=== PATIENT | male | born 1945 ===

== ENCOUNTER 2022-03-12 07:06 | Inpatient (IN) ==
--- NOTE | 2022-02-24 09:15 | PAT Medication Instructions ---
Medication Instructions Date of Service February 24, 2022 Home Medications Medication Instructions Recorded sildenafil (pulm.hypertension) 20 See Rx Instructions PO ONCE PRN 04/01/ mg tablet sexual activity #60 tabs lisinopril 2.5 mg tablet 2.5 mg PO HS metronidazole 0.75 % topical cream 1 appln topical DAILY PRN skin irritation cholecalciferol (vitamin D3) 125 mcg (5,000 unit) capsule 125 mcg PO QAM multivitamin 1 tab PO QAM sildenafil 20 mg tablet See Rx Instructions PO ONCE PRN acetaminophen 500 mg capsule 1,000 mg PO Q4H PRN Pain STOP taking 24 hours before surgery metronidazole 0.75 % topical cream 1 appln topical DAILY PRN skin irritation sildenafil 20 mg tablet See Rx Instructions PO ONCE PRN sexual activity DO NOT take the morning of surgery cholecalciferol (vitamin D3) 125 mcg (5,000 unit) capsule 125 mcg PO QAM multivitamin 1 tab PO QAM Take morning of surgery With a small sip of water, OTHERWISE NOTHING TO EAT OR DRINK AFTER MIDNIGHT: acetaminophen 500 mg capsule 1,000 mg PO Q4H PRN Pain (if needed) Take evening before surgery lisinopril 2.5 mg tablet 2.5 mg PO HS acetaminophen 500 mg capsule 1,000 mg PO Q4H PRN Pain (if needed) Other Notes If you have any questions please call us at [phone] or [phone] or [phone] or [phone]
--- NOTE | 2022-02-25 15:18 | Anesthesiology Consultation ---
Date of Service February 25, 2022 Assessment & Plan (1) Encounter for pre-operative examination: - Patient acceptable risk for surgery pending surgeon-ordered PCP clearance (scheduled 03/05; Dr. Jenkins). - COVID screening: Per assessment on 02/25: No known COVID-19 positive contacts or current COVID-19 related symptoms. Travel screen negative. Patient vaccinated. Surgeon arranging preop COVID testing. Awaiting results. Chart Review Chart Review: Patient seen in Pre Admission Testing Teaching & Discussion Pre-Anesthesia Teaching/Discussion Notes: Instructed NPO after midnight before surgery,except medications with 15 cc of water. Medication instructions provided according to the PAT guidelines. History Surgery Operation Date: 03/12/22 09:05 Proposed Procedures p L3-L4 Decompression and Fusion, Possible L4-L5, Spinal Cord Monitoring - Albin Turpin DO Height/Weight Height: 6 ft 3 in Weight: 96.615 kg Allergies Allergy/AdvReac Type Severity Reaction Status Date / Time No Known Allergies Allergy Verified 02/23/22 13:23 Medications Home Medications Medication Instructions Recorded Confirmed Last Taken lisinopril 2.5 mg tablet 2.5 mg PO HS 02/18/20 02/23/22 Unknown metronidazole 0.75 % topical cream 1 appln topical DAILY PRN skin 02/18/20 02/23/22 Unknown irritation cholecalciferol (vitamin D3) 125 125 mcg PO QAM 09/26/20 02/23/22 Unknown mcg (5,000 unit) capsule multivitamin 1 tab PO QAM 09/26/20 02/23/22 Unknown sildenafil (pulm.hypertension) 20 See Rx Instructions PO ONCE PRN 04/01/21 02/23/22 Unknown mg tablet sexual activity #60 tabs acetaminophen 500 mg capsule 1,000 mg PO Q4H PRN Pain 02/23/22 02/23/22 Unknown Past Medical History Medical History Blepharoptosis Chronic anemia Hgbs 10s Chronic back pain Since 09/2021 Chronic kidney disease Stage 3, creatinine 1.9-2s Follows with [facility] Hypertension Exercise / Class Metabolic Activity II 4-5 Yardwork/Stairs/Walk up hill (one FS (no CP, no SOB)) Past Family History Family History Mother Hypertension Other No family history of adverse response to anesthesia Past Surgical History Surgical History History of cataract surgery History of colonoscopy S/P epidural steroid injection Set of 3 (Dr. Holm) Past Anesthesia History No Hx of Anesthesia Complications (except post-op nausea) and No Family Hx of Anesthesia Complications History of PONV History of PONV (post-op nausea) and Hx of Motion Sickness (+ vertigo) Social History Smoking Status: Never smoker Do You Dip or Chew Tobacco: No Hx Alcohol Use: Yes alcohol intake frequency: a few times a month Hx Substance Use: No substance use type: does not use Review of Systems Patient denies chest pain, shortness of breath, dyspnea on exertion, fever, c hills, cough, wheezing, palpitations. Physical Exam Vital Signs VITALS BP 164/79 (BP typically 110s/70s) P 69 TEMP 98.5 SP02 100%RA RESP 16 PHYSICAL Full cervical extension range of motion. Full TMJ range of motion. TMD 4 finger breaths Mallampati Score 1 Dentition: upper partial Lungs: clear throughout to auscultation Cardiac: regular rate and rhythm, no murmurs noted Spine: normal Carotid arteries: negative bruit Extremities: no edema Lab Results Anesthesia Preop Results Results Anesthesia Widget: WBC 8.26 K/ul (4.8-10.8) 02/25/22 Hgb 11.2 g/dl (14.0-18.0) L 02/25/22 Hct 33.2 % (40.1-51.0) L 02/25/22 Plt 289 K/uL (130-400) 02/25/22 Na 136 mmol/L (136-145) 02/25/22 K 4.6 mmol/L (3.5-5.1) 02/25/22 Cl 101 mmol/L (98-107) 02/25/22 CO2 29 mmol/L (21-32) 02/25/22 BUN 26 mg/dl (6-23) H 02/25/22 Creat 1.93 mg/dl (0.6-1.4) H 02/25/22 Glucose Level 96 mg/dl (70-99(Fasting)) 02/25/22 PT 10.7 Seconds (9.0-12.0) 02/25/22 PTT 26.1 Seconds (21.0-31.0) 02/25/22 INR 1.0 (0.9-1.1) 02/25/22 Urine Color Yellow 02/25/22 Urine Appearance Clear (Clear) 02/25/22 Urine pH 5.5 (4.5-7.5) 02/25/22 Urine Specific [place] 1.011 (1.000-1.030) 02/25/22 Urine Protein Negative (Negative) 02/25/22 Urine Glucose (UA) Negative (Negative) 02/25/22 Urine Ketones Negative (Negative) 02/25/22 Urine Blood Negative (Negative) 02/25/22 Urine Nitrite Negative (Negative) 02/25/22 Urine Bilirubin Negative (Negative) 02/25/22 Urine Urobilinogen Negative (Negative) 02/25/22 Urine Leukocyte Esterase Negative (Negative) 02/25/22 Blood Type A Positive 02/25/22 Antibody Screen NEGATIVE 02/25/22 Testing Laboratory Results Per [facility] nephrology, pt has chronic anemia with hgb in the 10s and creatinine in the 1.9-2s per chart review. Electrocardiogram Date: 09/22/21 Sinus rhythm at 79 bpm. RBBB. Chest X-Ray Date: 02/25/22 Findings: + NAD Echocardiogram Date: 10/27/21 EF 60-65%. No regional motion abnormality. Grade 1 diastolic dysfunction. Mildly dilated ascending aorta. Aortic root is not dilated.
[~2022-03-12 07:06] MED LIST: ACETAMINOPHEN 500 MG TAB PO SCH; CeleBREX 200 MG CAP PO SCH; GABAPENTIN 300 MG CAP PO SCH; LR 15ML/HR IV SCH; ceFAZolin 2000MG 2,000 MG/15 ML SYR IV SCH
[2022-03-12] MEDS ORDERED: ONDANSETRON INJ 2 MG/ML 2 ML VIAL IV PRN ×2 (08:33→13:46)
[2022-03-12] MEDS ORDERED: LABETALOL HCL IV 5 MG/ML 20ML IV PRN (08:33)
[2022-03-12] MEDS ORDERED: ATROPINE SULFATE 0.1 MG/ML 10ML SYR IV PRN (08:33)
[2022-03-12] MEDS ORDERED: HYDROmorphone INJ 1 MG/ML SYRINGE IV PRN ×2 (08:33→13:46)
[2022-03-12] MEDS ORDERED: ePHEDrine sulfate 50 MG/ML AMP IV PRN (08:33)
--- NOTE | 2022-03-12 08:35 | History & Physical Bridge Note ---
Date of Service March 12, 2022 History & Physical Bridge Note I have examined the patient, reviewed the History & Physical and in the interval since the performance of the History & Physical I have noted the following changes of clinical significance: no changes noted
--- NOTE | 2022-03-12 08:36 | History & Physical Report ---
Date of Service March 12, 2022 Assessment & Plan (1) Neurogenic claudication due to lumbar spinal stenosis: Plan: L3-L4 decompression and fusion, possible L4-L5 History of Present Illness Chief Complaint: Back and leg pain Primary Care Provider: Arvin Lanier This is a 76-year-old male who presents with chronic persistent back and leg pain. Failing course of nonoperative care is here for surgical intervention. Allergies Allergy/AdvReac Type Severity Reaction Status Date / Time No Known Allergies Allergy Verified 03/12/22 07:22 Home Medications Medication Instructions Recorded Confirmed Type lisinopril 2.5 mg tablet 2.5 mg PO HS PRN Other 02/18/20 03/12/22 History metronidazole 0.75 % topical cream 1 appln topical DAILY PRN skin 02/18/20 03/12/22 History irritation cholecalciferol (vitamin D3) 125 125 mcg PO QAM 09/26/20 03/12/22 History mcg (5,000 unit) capsule multivitamin 1 tab PO QAM 09/26/20 03/12/22 History sildenafil (pulm.hypertension) 20 See Rx Instructions PO ONCE PRN 04/01/21 03/12/22 Rx mg tablet sexual activity #60 tabs acetaminophen 500 mg capsule 1,000 mg PO Q4H PRN Pain 02/23/22 03/12/22 History Past Med/Surg History Medical History Blepharoptosis Chronic anemia Hgbs 10s Chronic back pain Since 09/2021 Chronic kidney disease Stage 3, creatinine 1.9-2s Follows with [facility] Hypertension Surgical History History of cataract surgery History of colonoscopy S/P epidural steroid injection Set of 3 (Dr. Holm) Family History Mother Hypertension Other No family history of adverse response to anesthesia Social History Smoking Status: Never smoker Second Hand Exposure: No; Do You Dip or Chew Tobacco: No; Tobacco Cessation Education Requested by Patient: No Hx Alcohol Use: Yes Hx Substance Use: No Preferred Language: Maltese Communication Ability: Effective Insurance Underwriting Assistant Required: No Beliefs That Will Affect Care: None marital status: Current Living Situation: Spouse Other Information That Helps Us Care for You: No Feels Safe at Home: Yes Safety Concerns: Feels Safe At This Time Assistive Devices Comment: upper partial Physical Exam Physical Exam: Patient is alert and oriented Heart regular rhythm Lungs clear Results & Data Results & Data ([facility]) Vital Signs (Past 12 Hours) Vital Signs Temp Pulse Resp BP Pulse Ox O2 Del Method 03/12/22 07:49 Room Air 03/12/22 07:43 36.8 C 80 18 164/81 H 98 Room Air
[2022-03-12] MEDS ORDERED: BUPIVACAINE/EPINEPHRINE 0.25% 1:200,000 30 ML VIAL ONE (08:59)
[2022-03-12] MEDS ORDERED: ceFAZolin 330 MG/ML 1 GM VIAL ONE (08:59)
[2022-03-12] MEDS ORDERED: fentaNYL citrate 100 MCG/2 ML VIAL ONE (09:05)
[2022-03-12] MEDS ORDERED: HYDROmorphone INJ 2 MG/ML SYR/VIAL ONE (09:50)
[2022-03-12] MEDS ORDERED: DEXAMETHASONE SOD INJ 4 MG/ML VIAL ONE ×3 (10:10)
[2022-03-12] MEDS ORDERED: ONDANSETRON INJ 2 MG/ML 2 ML VIAL ONE (10:11)
[2022-03-12] MEDS ORDERED: ROCURONIUM BROMIDE 10 MG/ML 5 ML VIAL IV ONE (10:21)
[2022-03-12] MEDS ORDERED: FLOSEAL HEMOSTATIC MATRIX 10ML TOP ONE (11:40)
--- NOTE | 2022-03-12 11:48 | Operative Report ---
Post Operative Report Pre & Post Diagnosis Operation Date: 03/12/22 09:05 Pre-Op Diagnosis: Spinal Stenosis Lumbar Region with Radiculopathy Post-Op Diagnosis: Spinal Stenosis Lumbar Region with Radiculopathy I identified the patient and participated in the time-out.: Yes Procedure Operation Date: 03/12/22 09:05 Actual Procedures #1 lumbar decompression bilateral medial facetectomies and foraminotomies L2-L3, L3-L4 and L4-5. #2 posterior spinal fusion L3-L4 L4-L5. #3 placement of posterior instrumentation L3-L4 L4-L5. #4 interbody fusion L3-L4 L4-L5. #5 placement of Spira 14 x 26 mm cage at L3-L4 and 12 x 26 mm at L4-L5. #6 placement locally harvested morselized autograft in the posterior gutters. #7 placement of I factor model V toss in interbody space and posterior lateral gutters. Surgeon Albin Turpin, DO Credit Adjuster Larry Mckeon Estimated Blood Loss 200 Findings Consistent with Post-Op Diagnosis Specimens None Indications This is a 76-year-old male who presents with above-mentioned diagnosis of failed course of nonoperative care is here for surgical invention. Description of Procedure Patient was met with identified informed consent obtained. Patient was then taken to the operative suite underwent a patient placed in a prone position the [place] table top Luis frame. All bony prominences well-padded eyes inspected to ensure no external pressure placed upon them. This point lumbar spine was prepped and draped in normal sterile fashion. Sharp dissection with the assistance of Bovie cautery from down to and exposing the lamina and transverse processes of L3-L4-L5 bilaterally. From caudal to cephalad fashion complete laminectomy of L4 L3 and partial laminectomy of L2 was performed including bilateral medial facetectomies and foraminotomies addressing severe spinal stenosis. Pedicle screws were then placed in all 3 L4-L5 bilaterally with assistance of fluoroscopy and appropriately sized marie placed. By way of a transforaminal approach and right complete discectomy of L4-5 was performed endplates curetted to subcortical bleeding bone and a 12 x 26 mm spiral cage with I factor tapped in position. Then proceeded to L3-L4 and again by way of a transforaminal approach on the right complete discectomy performed endplates curetted to subcortically bone and a 14 x 26 mm spiral cage with I factor tapped in position. The rods were then compressed locked into final position bilaterally. The transverse processes of L3-L4-L5 burred to subcortically bone. I factor combined with V toss and locally harvested morselized autograft was placed in the posterior gutters. 15 round CASSIE drain inserted. The incision was then closed with 1 Vicryl the fascia 2-0 Vicryl subcutaneously and 4 Monocryl for final skin closure. Steri-Strip sterile dressings placed. Patient waken taken PACU stable condition. Please note spinal cord monitoring was utilized at the procedure no changes noted. Lastly Larry Mckeon was present at the entire surgeon while the patient positioning complex portions of the surgery and fascial closure. I attest to the content of the Intraoperative Record and any orders documented therein. Any exceptions are noted below.
[2022-03-12] MEDS: fentaNYL citrate 100 MCG/2 ML VIAL IV PRN ×4 (12:36→12:51)
--- NOTE | 2022-03-12 12:42 | Fluoroscopy Report ---
FL lumbar spine 2-3V CLINICAL HISTORY: L3-L4 DECOMPRESSION AND FUSION POSSIBLE L4-L5 COMPARISON STUDY: None. FLUOROSCOPY TIME: 29 seconds. FINDINGS: 2 fluoroscopic spot images of the lumbar spine demonstrate posterior decompression and fusi on at L3 L5 with pedicle screws and rods. The hardware appears intact. Disc spacers are placed. IMPRESSION: Fluoroscopic assistance provided for L3-L5 posterior decompression and fusion. ACT 112: Negative or not required by law. Electronically signed by: Keanu Garcia M.D. 03/12/2022 12:41 PM
[2022-03-12] MEDS ORDERED: HYDROmorphone INJ 0.5 MG/0.5 ML SYR ONE (13:25)
[2022-03-12] MEDS ORDERED: ALUMINUM/MAGNESIUM SUSP 30 ML UDC PO PRN (13:46)
[2022-03-12] MEDS ORDERED: SOD PHOSPHATE/SOD BIPHOSPHATE ENEMA 132 ML BTL PR PRN (13:46)
[2022-03-12] MEDS ORDERED: NALOXONE HCL 0.4 MG/1 ML VIAL/CARP IV PRN (13:46)
[2022-03-12] MEDS ORDERED: ACETAMINOPHEN 500 MG TAB PO PRN (13:46)
[2022-03-12] MEDS ORDERED: hydrOXYzine HCl 25 MG TAB PO PRN (13:46)
[2022-03-12] MEDS ORDERED: FAMOTIDINE 20 MG TAB PO PRN (13:46)
[2022-03-12] MEDS ORDERED: LORazepam 0.5 MG TAB PO PRN (13:46)
[2022-03-12] MEDS ORDERED: traMADol HCL 50 MG TABLET PO PRN (13:46)
[2022-03-12] MEDS ORDERED: PROMETHAZINE HCL 12.5 MG in SODIUM CHLORIDE 0.9% 50 ML IV PRN (13:46)
[2022-03-12] MEDS ORDERED: bisacodyL 10 MG SUPP PR PRN (13:46)
[2022-03-12] MEDS ORDERED: ACETAMINOPHEN 1,000 MG/100 ML VIAL IV PRN (13:46)
[2022-03-12] MEDS ORDERED: HYDROmorphone INJ 0.5 MG/0.5 ML SYR IV PRN (13:46)
[2022-03-12] MEDS ORDERED: LORazepam 0.5 MG in SYRINGE 0.25 ML IV PRN (13:46)
[2022-03-12] MEDS ORDERED: ONDANSETRON 4 MG OD TAB PO PRN (13:46)
[2022-03-12] MEDS ORDERED: diphenhydrAMINE Capsule 25 MG CAP PO PRN (13:46)
[2022-03-12] MEDS ORDERED: METOCLOPRAMIDE HCL INJ 5 MG/ML 2 ML VIAL IV PRN (13:46)
--- NOTE | 2022-03-12 14:12 | Anesthesiology Progress Note ---
Date of Service March 12, 2022 Anesthesia Post Procedure Vital Signs Vital Signs: Temp Pulse Resp BP Pulse Ox O2 Del Method O2 Flow Rate 03/12/22 13:30 71 17 118/78 95 Room Air 03/12/22 13:20 60 15 117/57 L 93 Room Air 03/12/22 13:10 74 22 118/47 L 98 Room Air 03/12/22 13:00 97.2 F L 69 13 101/83 100 Nasal Cannula 4 03/12/22 12:50 65 16 119/58 L 100 Nasal Cannula 4 03/12/22 12:40 71 17 112/54 L 100 Nasal Cannula 4 03/12/22 12:30 72 17 119/58 L 100 Nasal Cannula 4 03/12/22 12:20 76 16 108/57 L 100 Nasal Cannula 4 03/12/22 12:12 97.3 F L 93 H 16 118/73 100 Nasal Cannula 4 03/12/22 07:49 Room Air 03/12/22 07:43 98.2 F 80 18 164/81 H 98 Room Air Pain Intensity Lower Back: Pain Intensity: 7 Transfer of Care Handoff Completed per policy Notes Mental Status: alert / awake / arousable and participated in evaluation Patient Amnestic to Procedure: Yes Nausea / Vomiting: adequately controlled Pain: adequately controlled Airway Patency, RR, SpO2: stable & adequate BP & HR: stable & adequate Hydration State: stable & adequate Anesthetic Complications: no major complications apparent and Pt Satisfied with anesthetic care
[2022-03-12] MEDS: SODIUM CHLORIDE 0.9% 1000ML 1,000 ML IV SCH ×2 (14:40→21:19)
--- NOTE | 2022-03-12 15:03 | Consultation ---
Date of Consultation March 12, 2022 Assessment & Plan (1) Neurogenic claudication due to lumbar spinal stenosis: #. History of neurogenic claudication due to lumbar spinal stenosis #. Status post lumbar spine decompression and fusion by Dr. Turpin on 03/12/2022 Patient seen and examined at bedside status post surgery, reports pain under control and improvement of his RLE radicular pain. Patient hemodynamically stable, PT/OT/DVT prophylaxis/pain management per primary team Incentive spirometer. Labs in a.m., watch out for acute blood loss anemia. EBL 200 cc. #. Other chronic medical conditions: CKD stage III----> resume home meds as and when appropriate. DVT prophylaxis: Per primary team Full code History of Present Illness Requesting Physician: Dr. Turpin Reason for Consultation: Medical Mx Attending Physician: Albin Turpin, DO History of Present Illness 76-year-old gentleman with PMH of BPH, neurogenic claudication due to lumbar spinal stenosis, abnormal renal function, rosacea is a medical consult for status post lumbar surgery on 03/12/[address] Turpin. Patient seen and examined at bedside, was still somewhat drowsy likely from residual anesthesia effect but oriented and cooperative. Patient denies any fever/cough/chest pain/other acute problems in the recent past leading up to the surgery. Patient does report some mild nausea postsurgery but no vomiting and reports improvement in his RLE radicular pain, reports operative pain 7/10, as needed pain medications on board which patient will be receiving soon. Patient denies headache/dizziness/chest pain/palpitations/other review of symptoms. Patient denies smoking and drug use, uses alcohol occasionally. Patient is not on blood thinner. Allergies Allergy/AdvReac Type Severity Reaction Status Date / Time No Known Allergies Allergy Verified 03/12/22 07:22 Home Medications Medication Instructions Recorded Confirmed Type lisinopril 2.5 mg tablet 2.5 mg PO HS PRN Other 02/18/20 03/12/22 History metronidazole 0.75 % topical cream 1 appln topical DAILY PRN skin 02/18/20 03/12/22 History irritation cholecalciferol (vitamin D3) 125 125 mcg PO QAM 09/26/20 03/12/22 History mcg (5,000 unit) capsule multivitamin 1 tab PO QAM 09/26/20 03/12/22 History sildenafil (pulm.hypertension) 20 See Rx Instructions PO ONCE PRN 04/01/21 03/12/22 Rx mg tablet sexual activity #60 tabs acetaminophen 500 mg capsule 1,000 mg PO Q4H PRN Pain 02/23/22 03/12/22 History oxycodone 5 mg tablet 5 mg PO Q6H PRN pain, severe #30 03/12/22 Rx tabs tramadol 50 mg tablet 50 mg PO Q6H PRN pain, moderate 03/12/22 Rx #30 tabs Patient History Medical History Blepharoptosis Chronic anemia Hgbs 10s Chronic back pain Since 09/2021 Chronic kidney disease Stage 3, creatinine 1.9-2s Follows with [facility] Hypertension Surgical History History of cataract surgery History of colonoscopy S/P epidural steroid injection Set of 3 (Dr. Holm) Family History Mother Hypertension Other No family history of adverse response to anesthesia Social History Smoking Status: Never smoker Second Hand Exposure: No; Do You Dip or Chew Tobacco: No; Tobacco Cessation Education Requested by Patient: No Hx Alcohol Use: Yes Hx Substance Use: No Preferred Language: Guyanese Communication Ability: Effective Business Development Required: No Beliefs That Will Affect Care: None marital status: Current Living Situation: Spouse Other Information That Helps Us Care for You: No Feels Safe at Home: Yes Safety Concerns: Feels Safe At This Time Assistive Devices Comment: upper partial Review of Systems Review of Systems: Negative otherwise mentioned in HPI. Physical Exam Physical Exam: GENERAL: Alert and oriented x3. NAD, on RA. HEENT: No pallor, no icterus. Pupils equal, round and reactive to light. Oral mucosa moist. NECK: No JVD, no neck masses. HEART: S1 and S2 heard. Regular rate and rhythm. No murmur, no gallop. RESPIRATORY SYSTEM: Normal AP diameter. No accessory muscle use. No wheezing, no crackles. ABDOMEN: Soft, bowel sounds present, nontender, no distention. CENTRAL NERVOUS SYSTEM: No facial droop. Speech is clear. Obeys simple commands. Moves extremities. EXTREMITIES: No edema, no erythema seen. Lower back with clean dressing without soakage. CASSIE drain with moderate to large serosanguineous collection noted. Results & Data ([facility]) Vital Signs (Past 12 Hours) Vital Signs Temp Pulse Resp BP Pulse Ox O2 Del Method O2 Flow Rate 03/12/22 14:44 36.2 C L 78 16 126/61 96 Room Air 03/12/22 14:12 36.3 C L 71 18 118/63 97 Room Air 03/12/22 13:30 71 17 118/78 95 Room Air 03/12/22 13:20 60 15 117/57 L 93 Room Air 03/12/22 13:10 74 22 118/47 L 98 Room Air 03/12/22 13:00 36.2 C L 69 13 101/83 100 Nasal Cannula 4 03/12/22 12:50 65 16 119/58 L 100 Nasal Cannula 4 03/12/22 12:40 71 17 112/54 L 100 Nasal Cannula 4 03/12/22 12:30 72 17 119/58 L 100 Nasal Cannula 4 03/12/22 12:20 76 16 108/57 L 100 Nasal Cannula 4 03/12/22 12:12 36.3 C L 93 H 16 118/73 100 Nasal Cannula 4 03/12/22 07:49 Room Air 03/12/22 07:43 36.8 C 80 18 164/81 H 98 Room Air
[2022-03-12] MEDS: ceFAZolin 2000MG 2,000 MG/15 ML SYR IV SCH (18:25)
[2022-03-12] MEDS: oxyCODONE HCL IR 5 MG TAB (IMMEDIATE RELEASE) PO PRN (19:56)
[2022-03-12] MEDS: DOCUSATE SODIUM/SENNA 50/8.6MG TAB PO SCH (20:07)
[2022-03-12] MEDS: lisinopril 2.5 MG TAB PO SCH (20:07)
[2022-03-13] MEDS: ceFAZolin 2000MG 2,000 MG/15 ML SYR IV SCH (02:06)
[2022-03-13] MEDS: SODIUM CHLORIDE 0.9% 1000ML 1,000 ML IV SCH (03:13)
[2022-03-13] MEDS: oxyCODONE HCL IR 5 MG TAB (IMMEDIATE RELEASE) PO PRN ×5 (03:17→21:41)
[2022-03-13] MEDS: POLYETHYLENE (MIRALAX) 17 GM PACK PO SCH ×4 (05:33→23:06)
[2022-03-13 06:00] LABS: Basophils # (auto) 0.01 K/uL (0-0.2); Basophils % (auto) 0.1 %; Eosinophils # (auto) 0.01 K/uL (0-0.50); Eosinophils % (auto) 0.1 %; Hematocrit (blood only) 26.7 % (40.1-51.0); Hemoglobin 8.8 g/dl (14.0-18.0); Immature Granulocytes # (auto) 0.05 K/uL (0.00-0.02); Immature Granulocytes % (auto) 0.3 %; Lymphocytes # (auto) 0.75 K/uL (1.2-3.4); Lymphocytes % (auto) 5.2 %; Mean Corpuscular Hemoglobin 32.5 pg (25.0-34.0); Mean Corpuscular Volume 98.5 fL (80.0-100.0); Mean Platelet Volume 10.1 fL (9.4-12.4); Monocytes # (auto) 1.23 K/uL (0.24-0.82); Monocytes % (auto) 8.5 %; Neutrophils # (auto) 12.46 K/uL (1.4-6.5); Neutrophils % (auto) 85.8 %; Platelet Count 263 K/uL (130-400); RDW Coefficient of Variation 12.8 % (11.5-14.5); RDW Standard Deviation 45.8 fL (36.4-46.3); Red Blood Count 2.71 M/uL (4.63-6.08); White Blood Count 14.51 K/ul (4.8-10.8)
[2022-03-13 06:32] LABS: BUN Creatinine Ratio 13.6 (10-20); Calcium 8.4 mg/dl (8.5-10.1); Creatinine Clr Calc Pharmacy 34.7 ml/min; Est GFR (African American) 33.6 ml/min; Potassium 5.2 mmol/L (3.5-5.1)
--- NOTE | 2022-03-13 07:53 | Orthopedic Progress Note ---
Date of Service March 13, 2022 Assessment & Plan (1) Neurogenic claudication due to lumbar spinal stenosis: Plan: Patient is postoperative day 1 status post L3-5 decompression and instrumented fusion. Maintain CASSIE drain. Continue with pain control. DVT prophylaxis is in the form of teds and SCDs. Continue to monitor H&H. Will start physical therapy today. Anticipate discharge home within the next 24 to 48 hours. Admission and Anticipated Discharge Date Admission Date: March 12, 2022 Priyanka Cueto is postoperative day 1 status post lumbar decompression fusion L3-5. He has had an uneventful evening. He is doing well. Pain is controlled. CASSIE drain output last shift was 80 cc. H&H is morning are 8.8 and 26.7 respectively. He is asymptomatic. Review of Systems Review of Systems: All systems reviewed & are unremarkable except as noted in HPI & below Physical Exam Physical Exam: He sitting up in bed in no acute distress Alert and oriented x3 Calf soft nontender bilaterally Strength is intact bilaterally Results & Data ([facility]) Vital Signs (Past 12 Hours) Vital Signs Temp Pulse Resp BP Pulse Ox O2 Del Method 03/13/22 07:11 36.4 C L 73 16 113/65 100 Room Air 03/13/22 02:00 36.5 C 79 16 112/57 L 98 Room Air 03/12/22 22:17 36.4 C L 80 18 114/58 L 100 Room Air 03/12/22 20:03 36.5 C 79 18 124/73 99 Room Air
[2022-03-13] MEDS: CHOLECALCIFEROL 5,000 UNITS 125 MCG TAB PO SCH (07:58)
[2022-03-13] MEDS: dexAMETHasone 6 MG in SYRINGE 0 ML IV SCH (07:58)
--- NOTE | 2022-03-13 08:42 | Hospitalist Progress Note ---
Date of Service March 13, 2022 Assessment & Plan (1) Neurogenic claudication due to lumbar spinal stenosis: Plan: History of neurogenic claudication due to lumbar spinal stenosis Status post lumbar spine decompression and fusion by Dr. Turpin on 03/12/2022 Patient seen and examined at bedside status post surgery, reports pain under control and improvement of his RLE radicular pain. Patient hemodynamically stable, PT/OT/DVT prophylaxis/pain management per primary team Incentive spirometer. Anemia of chronic disease, secondary CKD baseline Hgb ~10 per pt's records, anemia is long-standing Acute on chronic anemia Current hemoglobin 8.8 (post-op expected) No need for blood transfusion at this timr pt is asymptomatic CKD stage III baseline Cr 1.9-2 monitor renal function DVT prophylaxis: Per primary team Full code Admission and Anticipated Discharge Date Admission Date: March 12, 2022 Subjective Patient is status post lumbar decompression fusion L3-5 yesterday Currently he is sitting up in chair, in no acute distress Denies fevers, chills, chest pain, shortness of breath, abdominal pain, nausea or vomiting He is voiding however no BM yet. Reports that he ambulated in the hallway No significant pain reported Review of Systems Review of Systems: All systems reviewed & are unremarkable except as noted in Subjective Physical Exam Physical Exam: GENERAL: Alert and oriented x3. NAD, on RA. HEENT: NC/AT. EOMI. Pupils equal, round and reactive to light. Oral mucosa moist. NECK: No JVD, no neck masses. HEART: S1 and S2 heard. Regular rate and rhythm. No murmur, no gallop. RESPIRATORY SYSTEM: Normal AP diameter. No accessory muscle use. No wheezing, no crackles. ABDOMEN: Soft, bowel sounds present, nontender, no distention. NEURO: No facial droop. Speech is clear. Obeys simple commands. Moves extremities. EXTREMITIES: No edema, no erythema seen. Lower back with clean dressing CASSIE drain with serosanguineous fluid Results & Data Results & Data ([facility]) Vital Signs (Past 12 Hours) Vital Signs Temp Pulse Resp BP Pulse Ox O2 Del Method 03/13/22 07:11 36.4 C L 73 16 113/65 100 Room Air 03/13/22 02:00 36.5 C 79 16 112/57 L 98 Room Air 03/12/22 22:17 36.4 C L 80 18 114/58 L 100 Room Air Laboratory Results 03/13/22 03/13/22 Range/Units 05:26 05:26 WBC 14.51 H (4.8-10.8) K/ul RBC 2.71 L (4.63-6.08) M/uL Hgb 8.8 L (14.0-18.0) g/dl Hct 26.7 L (40.1-51.0) % MCV 98.5 (80.0-100.0) fL MCH 32.5 (25.0-34.0) pg MCHC 33.0 (32.0-36.0) g/dL RDW Std Deviation 45.8 (36.4-46.3) fL RDW Coeff of Bharat 12.8 (11.5-14.5) % Plt Count 263 (130-400) K/uL MPV 10.1 (9.4-12.4) fL Immature Gran % (Auto) 0.3 % Neut % (Auto) 85.8 % Lymph % (Auto) 5.2 % Glenn % (Auto) 8.5 % Eos % (Auto) 0.1 % Baso % (Auto) 0.1 % Neut # (Auto) 12.46 H (1.4-6.5) K/uL Lymph # (Auto) 0.75 L (1.2-3.4) K/uL Glenn # (Auto) 1.23 H (0.24-0.82) K/uL Eos # (Auto) 0.01 (0-0.50) K/uL Baso # (Auto) 0.01 (0-0.2) K/uL Immature Gran # (Auto) 0.05 H (0.00-0.02) K/uL Sodium 136 (136-145) mmol/L Potassium 5.2 H (3.5-5.1) mmol/L Chloride 104 (98-107) mmol/L Carbon Dioxide 27 (21-32) mmol/L Anion Gap 5 (3-11) BUN 29 H (6-23) mg/dl Creatinine 2.13 H (0.6-1.4) mg/dl Est Cr Clr Drug Dosing 34.7 ml/min Est GFR ( Amer) 33.6 ml/min Est GFR (Non-Af Amer) 29.0 ml/min BUN/Creatinine Ratio 13.6 (10-20) Glucose 107 H (70-99(Fasting)) mg/dl Calcium 8.4 L (8.5-10.1) mg/dl Medications Administered Current Inpatient Medications Acetaminophen (Acetaminophen 500 Mg Tab) 1,000 mg PO Q8H PRN PRN Reason: MILD Pain Scale 1,2,3 & Pre PT Stop: 04/11/22 13:45 Al Hydrox/Mg Hydrox/Simethicone (Aluminum/Magnesium Susp 30 Ml Udc) 30 ml PO Q6H PRN PRN Reason: Dyspepsia Stop: 04/11/22 13:45 Bisacodyl (Bisacodyl 10 Mg Supp) 10 mg [place] DAILY PRN PRN Reason: Constipation Stop: 04/11/22 13:45 Diphenhydramine HCl (Diphenhydramine Capsule 25 Mg Cap) 25 mg PO Q6H PRN PRN Reason: Allergic Rhinitis/Insomnia Stop: 04/11/22 13:45 Famotidine (Famotidine 20 Mg Tab) 20 mg PO Q12H PRN PRN Reason: Dyspepsia Stop: 04/11/22 13:45 Hydromorphone HCl (Hydromorphone Inj 0.5 Mg/0.5 Ml Syr) 0.5 mg IV Q3H PRN PRN Reason: MODERATE Pain (Scale 4,5,6) & Pre PT Stop: 03/26/22 13:45 Hydromorphone HCl (Hydromorphone Inj 1 Mg/Ml Syringe) 1 mg IV Q3H PRN PRN Reason: SEVERE Pain (Scale 7,8,9,10) Stop: 03/26/22 13:45 Hydroxyzine HCl (Hydroxyzine Hcl 25 Mg Tab) 25 mg PO Q8H PRN PRN Reason: Anxiety Stop: 04/11/22 13:45 Acetaminophen (Ofirmev) 1,000 mg in 100 mls @ 400 mls/hr IV Q8H PRN PRN Reason: Pain Rating 1-3 & Pre PT Stop: 03/13/22 13:47 Lorazepam 0.5 mg/ Syringe 0.5 mls @ 2 mls/min IV Q8H PRN PRN Reason: Sedation/Anxiety Stop: 04/11/22 13:45 Promethazine HCl 12.5 mg/ (Sodium Chloride) 50.5 mls @ 202 mls/hr IV Q6H PRN PRN Reason: Nausea &/or Vomiting Stop: 04/11/22 13:45 Dexamethasone 6 mg/ Syringe 1.5 mls @ 1 mls/min IV DAILY [facility] Stop: 03/15/22 09:02 Last Admin: 03/13/22 07:58 Dose: 1 mls/min Lisinopril (Lisinopril 2.5 Mg Tab) 2.5 mg PO HS [facility] Stop: 04/11/22 20:59 Last Admin: 03/12/22 20:07 Dose: 2.5 mg Lorazepam (Lorazepam 0.5 Mg Tab) 0.5 mg PO Q8H PRN PRN Reason: Sedation/Anxiety Stop: 04/11/22 13:45 Magnesium Hydroxide (Magnesium Hydroxide Susp 30 Ml Udc) 30 ml PO Q24H PRN PRN Reason: Constipation Stop: 04/11/22 13:45 Metoclopramide HCl (Metoclopramide Hcl Inj 5 Mg/Ml 2 Ml Vial) 10 mg IV Q6H PRN PRN Reason: Nausea &/or Vomiting Stop: 04/11/22 13:45 Multivitamins (Multivitamin Tab) 1 tab PO QAM [facility] Stop: 04/12/22 08:59 Naloxone HCl (Naloxone Hcl 0.4 Mg/1 Ml Vial/Carp) 0.1 mg IV Q5M PRN PRN Reason: Oversedation/Resp depression Stop: 04/11/22 13:45 Ondansetron HCl (Ondansetron Inj 2 Mg/Ml 2 Ml Vial) 4 mg IV Q6H PRN PRN Reason: Nausea &/or Vomiting Stop: 04/11/22 13:45 Last Admin: 03/12/22 14:00 Dose: 4 mg Ondansetron HCl (Ondansetron 4 Mg Od Tab) 4 mg PO Q6H PRN PRN Reason: Nausea Stop: 04/11/22 13:45 Oxycodone HCl (Oxycodone Hcl Ir 5 Mg Tab (Immediate Release)) 5 - 10 mg PO Q4H PRN PRN Reason: Pain & Pre PT Stop: 03/26/22 13:45 Last Admin: 03/13/22 03:17 Dose: 10 mg Polyethylene Glycol (Polyethylene (Miralax) 17 Gm Pack) 17 gm PO Q6 [facility] Stop: 04/12/22 05:59 Last Admin: 03/13/22 05:33 Dose: 17 gm Senna/Docusate Sodium (Docusate Sodium/Senna 50/8.6mg Tab) 2 tab PO HS [facility] Stop: 04/11/22 20:59 Last Admin: 03/12/22 20:07 Dose: 2 tab Sodium Biphosphate/Sodium Phosphate (Sod Phosphate/Sod Biphosphate Enema 132 Ml Btl) 132 ml [place] ONE PRN PRN Reason: Constipation Stop: 04/11/22 13:45 Tramadol HCl (Tramadol Hcl 50 Mg Tablet) 50 - 100 mg PO Q4H PRN PRN Reason: Moderate-Severe pain & Pre PT Stop: 04/11/22 13:45 Vitamin D (Cholecalciferol 5,000 Units 125 Mcg Tab) 5,000 units PO QAM [facility] Stop: 04/12/22 08:59 Last Admin: 03/13/22 07:58 Dose: 5,000 units
[2022-03-13] MEDS: MULTIVITAMIN TAB PO SCH (09:47)
[2022-03-13] MEDS: lisinopril 2.5 MG TAB PO SCH (20:32)
[2022-03-13] MEDS: DOCUSATE SODIUM/SENNA 50/8.6MG TAB PO SCH (20:32)
[2022-03-14] MEDS: oxyCODONE HCL IR 5 MG TAB (IMMEDIATE RELEASE) PO PRN ×2 (05:27→11:19)
[2022-03-14] MEDS: MAGNESIUM HYDROXIDE SUSP 30 ML UDC PO PRN (05:27)
[2022-03-14] MEDS: POLYETHYLENE (MIRALAX) 17 GM PACK PO SCH ×4 (05:28→23:16)
[2022-03-14 05:57] LABS: Hematocrit (blood only) 26.6 % (40.1-51.0); Hemoglobin 9.1 g/dl (14.0-18.0)
[2022-03-14] MEDS: CHOLECALCIFEROL 5,000 UNITS 125 MCG TAB PO SCH (07:22)
[2022-03-14] MEDS: MULTIVITAMIN TAB PO SCH (07:22)
[2022-03-14] MEDS: dexAMETHasone 6 MG in SYRINGE 0 ML IV SCH (07:22)
--- NOTE | 2022-03-14 07:53 | Hospitalist Progress Note ---
Date of Service March 14, 2022 Assessment & Plan (1) Neurogenic claudication due to lumbar spinal stenosis: Plan: History of neurogenic claudication due to lumbar spinal stenosis Status post lumbar spine decompression and fusion by Dr. Turpin on 03/12/2022 Patient seen and examined at bedside status post surgery, reports pain under control and improvement of his RLE radicular pain. Patient hemodynamically stable, PT/OT/DVT prophylaxis/pain management per primary team Incentive spirometer. Anemia of chronic disease, secondary CKD baseline Hgb ~10 per pt's records, anemia is long-standing Acute on chronic anemia Current hemoglobin ~9 (post-op expected), stable from yesterday No need for blood transfusion at this time CKD stage III baseline Cr 1.9-2 monitor renal function DVT prophylaxis: Per primary team Full code Admission and Anticipated Discharge Date Admission Date: March 12, 2022 Subjective Patient is status post lumbar decompression fusion L3-5 2 days ago Currently he is laying in bed, in no acute distress Denies fevers, chills, chest pain, shortness of breath, abdominal pain, nausea or vomiting He is voiding however no BM yet. Reports that he ambulated in the hallway No significant pain reported After he walked this AM, he felt little lightheaded, BP on lower side (per pt his BP always little lower), will give small bolus of NS, encourage PO intake and cont. to monitor Review of Systems Review of Systems: All systems reviewed & are unremarkable except as noted in Subjective Physical Exam Physical Exam: GENERAL: Alert and oriented x3. NAD, on RA. HEENT: NC/AT. EOMI. Pupils equal, round and reactive to light. Oral mucosa moist. NECK: No JVD, no neck masses. HEART: S1 and S2 heard. Regular rate and rhythm. No murmur, no gallop. RESPIRATORY SYSTEM: Normal AP diameter. No accessory muscle use. No wheezing, no crackles. ABDOMEN: Soft, bowel sounds present, nontender, no distention. NEURO: No facial droop. Speech is clear. Obeys simple commands. Moves extremities. EXTREMITIES: No edema, no erythema seen. Lower back with clean dressing CASSIE drain with serosanguineous fluid Results & Data Results & Data ([facility]) Vital Signs (Past 12 Hours) Vital Signs Temp Pulse Resp BP Pulse Ox O2 Del Method 03/14/22 07:17 36.8 C 75 20 99/61 L 92 Room Air 03/13/22 22:28 36.8 C 68 18 110/63 95 Laboratory Results 03/14/22 Range/Units 05:28 Hgb 9.1 L (14.0-18.0) g/dl Hct 26.6 L (40.1-51.0) % Medications Administered Current Inpatient Medications Acetaminophen (Acetaminophen 500 Mg Tab) 1,000 mg PO Q8H PRN PRN Reason: MILD Pain Scale 1,2,3 & Pre PT Stop: 04/11/22 13:45 Al Hydrox/Mg Hydrox/Simethicone (Aluminum/Magnesium Susp 30 Ml Udc) 30 ml PO Q6H PRN PRN Reason: Dyspepsia Stop: 04/11/22 13:45 Bisacodyl (Bisacodyl 10 Mg Supp) 10 mg [place] DAILY PRN PRN Reason: Constipation Stop: 04/11/22 13:45 Diphenhydramine HCl (Diphenhydramine Capsule 25 Mg Cap) 25 mg PO Q6H PRN PRN Reason: Allergic Rhinitis/Insomnia Stop: 04/11/22 13:45 Famotidine (Famotidine 20 Mg Tab) 20 mg PO Q12H PRN PRN Reason: Dyspepsia Stop: 04/11/22 13:45 Hydromorphone HCl (Hydromorphone Inj 0.5 Mg/0.5 Ml Syr) 0.5 mg IV Q3H PRN PRN Reason: MODERATE Pain (Scale 4,5,6) & Pre PT Stop: 03/26/22 13:45 Hydromorphone HCl (Hydromorphone Inj 1 Mg/Ml Syringe) 1 mg IV Q3H PRN PRN Reason: SEVERE Pain (Scale 7,8,9,10) Stop: 03/26/22 13:45 Hydroxyzine HCl (Hydroxyzine Hcl 25 Mg Tab) 25 mg PO Q8H PRN PRN Reason: Anxiety Stop: 04/11/22 13:45 Lorazepam 0.5 mg/ Syringe 0.5 mls @ 2 mls/min IV Q8H PRN PRN Reason: Sedation/Anxiety Stop: 04/11/22 13:45 Promethazine HCl 12.5 mg/ (Sodium Chloride) 50.5 mls @ 202 mls/hr IV Q6H PRN PRN Reason: Nausea &/or Vomiting Stop: 04/11/22 13:45 Dexamethasone 6 mg/ Syringe 1.5 mls @ 1 mls/min IV DAILY [facility] Stop: 03/15/22 09:02 Last Admin: 03/14/22 07:22 Dose: 1 mls/min Lisinopril (Lisinopril 2.5 Mg Tab) 2.5 mg PO HS [facility] Stop: 04/11/22 20:59 Last Admin: 03/13/22 20:32 Dose: 2.5 mg Lorazepam (Lorazepam 0.5 Mg Tab) 0.5 mg PO Q8H PRN PRN Reason: Sedation/Anxiety Stop: 04/11/22 13:45 Magnesium Hydroxide (Magnesium Hydroxide Susp 30 Ml Udc) 30 ml PO Q24H PRN PRN Reason: Constipation Stop: 04/11/22 13:45 Last Admin: 03/14/22 05:27 Dose: 30 ml Metoclopramide HCl (Metoclopramide Hcl Inj 5 Mg/Ml 2 Ml Vial) 10 mg IV Q6H PRN PRN Reason: Nausea &/or Vomiting Stop: 04/11/22 13:45 Multivitamins (Multivitamin Tab) 1 tab PO QAM [facility] Stop: 04/12/22 08:59 Last Admin: 03/14/22 07:22 Dose: 1 tab Naloxone HCl (Naloxone Hcl 0.4 Mg/1 Ml Vial/Carp) 0.1 mg IV Q5M PRN PRN Reason: Oversedation/Resp depression Stop: 04/11/22 13:45 Ondansetron HCl (Ondansetron Inj 2 Mg/Ml 2 Ml Vial) 4 mg IV Q6H PRN PRN Reason: Nausea &/or Vomiting Stop: 04/11/22 13:45 Last Admin: 03/12/22 14:00 Dose: 4 mg Ondansetron HCl (Ondansetron 4 Mg Od Tab) 4 mg PO Q6H PRN PRN Reason: Nausea Stop: 04/11/22 13:45 Oxycodone HCl (Oxycodone Hcl Ir 5 Mg Tab (Immediate Release)) 5 - 10 mg PO Q4H PRN PRN Reason: Pain & Pre PT Stop: 03/26/22 13:45 Last Admin: 03/14/22 11:19 Dose: 5 mg Polyethylene Glycol (Polyethylene (Miralax) 17 Gm Pack) 17 gm PO Q6 [facility] Stop: 04/12/22 05:59 Last Admin: 03/14/22 10:51 Dose: 17 gm Senna/Docusate Sodium (Docusate Sodium/Senna 50/8.6mg Tab) 2 tab PO HS [facility] Stop: 04/11/22 20:59 Last Admin: 03/13/22 20:32 Dose: 2 tab Sodium Biphosphate/Sodium Phosphate (Sod Phosphate/Sod Biphosphate Enema 132 Ml Btl) 132 ml [place] ONE PRN PRN Reason: Constipation Stop: 04/11/22 13:45 Tramadol HCl (Tramadol Hcl 50 Mg Tablet) 50 - 100 mg PO Q4H PRN PRN Reason: Moderate-Severe pain & Pre PT Stop: 04/11/22 13:45 Vitamin D (Cholecalciferol 5,000 Units 125 Mcg Tab) 5,000 units PO QAM [facility] Stop: 04/12/22 08:59 Last Admin: 03/14/22 07:22 Dose: 5,000 units
--- NOTE | 2022-03-14 08:19 | Orthopedic Progress Note ---
Date of Service March 14, 2022 Assessment & Plan (1) Neurogenic claudication due to lumbar spinal stenosis: Plan: Patient is postoperative day 2 status post lumbar decompression and fusion L3-5. We will work on pain control today. Continue with physical therapy. DVT prophylaxis is in the form of teds and SCDs. Continue with aggressive bowel regimen. Maintain CASSIE drain. Anticipate discharge home tomorrow. Admission and Anticipated Discharge Date Admission Date: March 12, 2022 Priyanka Cueto is postoperative day 2 status post lumbar decompression and instrumented fusion L3-5. He has a bit more back pain today. No radicular complaints. He is passing flatus but no bowel movement. CASSIE drain output last shift was 60 cc. Yesterday in physical therapy is ambling over 250 feet plus ambulating the hallways with the assistance of a walker. H&H is morning are 9.1 and 26.6 respectively. Review of Systems Review of Systems: All systems reviewed & are unremarkable except as noted in HPI & below Physical Exam Physical Exam: Patient sitting in a chair no acute distres Alert and oriented x3 Lumbar dressing is clean dry and intact with functioning CASSIE drain Calf soft nontender bilaterally Strength is intact bilateral lower extremities s Results & Data ([facility]) Vital Signs (Past 12 Hours) Vital Signs Temp Pulse Resp BP Pulse Ox O2 Del Method 03/14/22 07:17 36.8 C 75 20 99/61 L 92 Room Air 03/13/22 22:28 36.8 C 68 18 110/63 95
[2022-03-14] MEDS ORDERED: SODIUM CHLORIDE 0.9% 1000ML 500 ML IV ONE (10:29)
[2022-03-14] MEDS: DOCUSATE SODIUM/SENNA 50/8.6MG TAB PO SCH (20:13)
[2022-03-14] MEDS: guaiFENesin 600 MG TABCR PO SCH (20:13)
[2022-03-14] MEDS: lisinopril 2.5 MG TAB PO SCH (20:15)
[2022-03-15] MEDS: POLYETHYLENE (MIRALAX) 17 GM PACK PO SCH ×2 (06:00→11:04)
[2022-03-15] MEDS: MAGNESIUM HYDROXIDE SUSP 30 ML UDC PO PRN (06:00)
[2022-03-15 06:10] LABS: Hematocrit (blood only) 25.5 % (40.1-51.0); Hemoglobin 8.6 g/dl (14.0-18.0)
[2022-03-15 06:35] LABS: BUN Creatinine Ratio 15.9 (10-20); Calcium 8.7 mg/dl (8.5-10.1); Creatinine Clr Calc Pharmacy 35.5 ml/min; Est GFR (African American) 34.6 ml/min; Est GFR (Non-African American) 29.8 ml/min; Potassium 4.6 mmol/L (3.5-5.1)
--- NOTE | 2022-03-15 07:57 | Hospitalist Progress Note ---
Date of Service March 15, 2022 Assessment & Plan (1) Neurogenic claudication due to lumbar spinal stenosis: Plan: History of neurogenic claudication due to lumbar spinal stenosis Status post lumbar spine decompression and fusion by Dr. Turpin on 03/12/2022 Pain under control and improvement of his RLE radicular pain. Patient hemodynamically stable, PT/OT/DVT prophylaxis/pain management per primary team Incentive spirometer. Anemia of chronic disease, secondary CKD baseline Hgb ~10 per pt's records, anemia is long-standing Acute on chronic anemia Current hemoglobin ~9 (post-op expected), stable No need for blood transfusion CKD stage III baseline Cr 1.9-2 monitor renal function DVT prophylaxis: Per primary team Full code Admission and Anticipated Discharge Date Admission Date: March 12, 2022 Subjective Patient is status post lumbar decompression fusion L3-5 Currently he is sitting up in chair, in no acute distress Denies fevers, chills, chest pain, shortness of breath, abdominal pain, nausea or vomiting He is voiding however no BM yet. Reports that he ambulated in the hallway No significant pain reported Review of Systems Review of Systems: All systems reviewed & are unremarkable except as noted in Subjective Physical Exam Physical Exam: GENERAL: Alert and oriented x3. NAD, on RA. HEENT: NC/AT. EOMI. Pupils equal, round and reactive to light. Oral mucosa moist. NECK: No JVD, no neck masses. HEART: S1 and S2 heard. Regular rate and rhythm. No murmur, no gallop. RESPIRATORY SYSTEM: Normal AP diameter. No accessory muscle use. No wheezing, no crackles. ABDOMEN: Soft, bowel sounds present, nontender, no distention. NEURO: No facial droop. Speech is clear. Obeys simple commands. Moves extremities. EXTREMITIES: No edema, no erythema seen. Lower back with clean dressing CASSIE drain with serosanguineous fluid Results & Data Results & Data ([facility]) Vital Signs (Past 12 Hours) Vital Signs Temp Pulse Resp BP BP Pulse Ox O2 Del Method 03/15/22 07:27 36.7 C 80 16 114/57 L 99 Room Air 03/14/22 22:29 36.6 C 99 H 20 151/69 H 96 Laboratory Results 03/15/22 03/15/22 Range/Units 05:37 05:37 Hgb 8.6 L (14.0-18.0) g/dl Hct 25.5 L (40.1-51.0) % Sodium 136 (136-145) mmol/L Potassium 4.6 (3.5-5.1) mmol/L Chloride 103 (98-107) mmol/L Carbon Dioxide 29 (21-32) mmol/L Anion Gap 4 (3-11) BUN 33 H (6-23) mg/dl Creatinine 2.08 H (0.6-1.4) mg/dl Est Cr Clr Drug Dosing 35.5 ml/min Est GFR ( Amer) 34.6 ml/min Est GFR (Non-Af Amer) 29.8 ml/min BUN/Creatinine Ratio 15.9 (10-20) Glucose 99 (70-99(Fasting)) mg/dl Calcium 8.7 (8.5-10.1) mg/dl Medications Administered Current Inpatient Medications Acetaminophen (Acetaminophen 500 Mg Tab) 1,000 mg PO Q8H PRN PRN Reason: MILD Pain Scale 1,2,3 & Pre PT Stop: 04/11/22 13:45 Al Hydrox/Mg Hydrox/Simethicone (Aluminum/Magnesium Susp 30 Ml Udc) 30 ml PO Q6H PRN PRN Reason: Dyspepsia Stop: 04/11/22 13:45 Bisacodyl (Bisacodyl 10 Mg Supp) 10 mg [place] DAILY PRN PRN Reason: Constipation Stop: 04/11/22 13:45 Diphenhydramine HCl (Diphenhydramine Capsule 25 Mg Cap) 25 mg PO Q6H PRN PRN Reason: Allergic Rhinitis/Insomnia Stop: 04/11/22 13:45 Famotidine (Famotidine 20 Mg Tab) 20 mg PO Q12H PRN PRN Reason: Dyspepsia Stop: 04/11/22 13:45 Guaifenesin (Guaifenesin 600 Mg Tabcr) 600 mg PO Q12 [facility] Stop: 04/13/22 20:59 Last Admin: 03/14/22 20:13 Dose: 600 mg Hydromorphone HCl (Hydromorphone Inj 0.5 Mg/0.5 Ml Syr) 0.5 mg IV Q3H PRN PRN Reason: MODERATE Pain (Scale 4,5,6) & Pre PT Stop: 03/26/22 13:45 Hydromorphone HCl (Hydromorphone Inj 1 Mg/Ml Syringe) 1 mg IV Q3H PRN PRN Reason: SEVERE Pain (Scale 7,8,9,10) Stop: 03/26/22 13:45 Hydroxyzine HCl (Hydroxyzine Hcl 25 Mg Tab) 25 mg PO Q8H PRN PRN Reason: Anxiety Stop: 04/11/22 13:45 Lorazepam 0.5 mg/ Syringe 0.5 mls @ 2 mls/min IV Q8H PRN PRN Reason: Sedation/Anxiety Stop: 04/11/22 13:45 Promethazine HCl 12.5 mg/ (Sodium Chloride) 50.5 mls @ 202 mls/hr IV Q6H PRN PRN Reason: Nausea &/or Vomiting Stop: 04/11/22 13:45 Dexamethasone 6 mg/ Syringe 1.5 mls @ 1 mls/min IV DAILY [facility] Stop: 03/15/22 09:02 Last Admin: 03/14/22 07:22 Dose: 1 mls/min Lisinopril (Lisinopril 2.5 Mg Tab) 2.5 mg PO HS [facility] Stop: 04/11/22 20:59 Last Admin: 03/14/22 20:15 Dose: 2.5 mg Lorazepam (Lorazepam 0.5 Mg Tab) 0.5 mg PO Q8H PRN PRN Reason: Sedation/Anxiety Stop: 04/11/22 13:45 Magnesium Hydroxide (Magnesium Hydroxide Susp 30 Ml Udc) 30 ml PO Q24H PRN PRN Reason: Constipation Stop: 04/11/22 13:45 Last Admin: 03/15/22 06:00 Dose: 30 ml Metoclopramide HCl (Metoclopramide Hcl Inj 5 Mg/Ml 2 Ml Vial) 10 mg IV Q6H PRN PRN Reason: Nausea &/or Vomiting Stop: 04/11/22 13:45 Multivitamins (Multivitamin Tab) 1 tab PO QAM [facility] Stop: 04/12/22 08:59 Last Admin: 03/14/22 07:22 Dose: 1 tab Naloxone HCl (Naloxone Hcl 0.4 Mg/1 Ml Vial/Carp) 0.1 mg IV Q5M PRN PRN Reason: Oversedation/Resp depression Stop: 04/11/22 13:45 Ondansetron HCl (Ondansetron Inj 2 Mg/Ml 2 Ml Vial) 4 mg IV Q6H PRN PRN Reason: Nausea &/or Vomiting Stop: 04/11/22 13:45 Last Admin: 03/12/22 14:00 Dose: 4 mg Ondansetron HCl (Ondansetron 4 Mg Od Tab) 4 mg PO Q6H PRN PRN Reason: Nausea Stop: 04/11/22 13:45 Oxycodone HCl (Oxycodone Hcl Ir 5 Mg Tab (Immediate Release)) 5 - 10 mg PO Q4H PRN PRN Reason: Pain & Pre PT Stop: 03/26/22 13:45 Last Admin: 03/14/22 11:19 Dose: 5 mg Polyethylene Glycol (Polyethylene (Miralax) 17 Gm Pack) 17 gm PO Q6 [facility] Stop: 04/12/22 05:59 Last Admin: 03/15/22 06:00 Dose: 17 gm Senna/Docusate Sodium (Docusate Sodium/Senna 50/8.6mg Tab) 2 tab PO HS [facility] Stop: 04/11/22 20:59 Last Admin: 03/14/22 20:13 Dose: 2 tab Sodium Biphosphate/Sodium Phosphate (Sod Phosphate/Sod Biphosphate Enema 132 Ml Btl) 132 ml [place] ONE PRN PRN Reason: Constipation Stop: 04/11/22 13:45 Tramadol HCl (Tramadol Hcl 50 Mg Tablet) 50 - 100 mg PO Q4H PRN PRN Reason: Moderate-Severe pain & Pre PT Stop: 04/11/22 13:45 Vitamin D (Cholecalciferol 5,000 Units 125 Mcg Tab) 5,000 units PO [facility] Stop: 04/12/22 08:59 Last Admin: 03/14/22 07:22 Dose: 5,000 units
[2022-03-15] MEDS: MULTIVITAMIN TAB PO SCH (08:10)
[2022-03-15] MEDS: CHOLECALCIFEROL 5,000 UNITS 125 MCG TAB PO SCH (08:10)
[2022-03-15] MEDS: guaiFENesin 600 MG TABCR PO SCH (08:11)
[2022-03-15] MEDS: dexAMETHasone 6 MG in SYRINGE 0 ML IV SCH (08:11)
[2022-03-15] MEDS: oxyCODONE HCL IR 5 MG TAB (IMMEDIATE RELEASE) PO PRN (08:11)
--- NOTE | 2022-03-15 10:03 | Discharge Summary ---
Date of Service March 15, 2022 Admission HPI Per Admitting Provider This is a 76-year-old male who presents with chronic persistent back and leg pain. Failing course of nonoperative care is here for surgical intervention. Principal Diagnosis Lumbar spinal stenosis with neurogenic claudication Discharge Data Allergies Allergy/AdvReac Type Severity Reaction Status Date / Time No Known Allergies Allergy Verified 03/12/22 07:22 Consultations 03/12/22 13:46 Consult Hospitalist Routine Procedures Performed Operation Date: 03/12/22 09:05 Actual Procedures p L3-L5 Decompression and Fusion, Spinal Cord Monitoring(Not Applicable) - Albin Turipn DO Ordered Studies 03/12/22 09:05 [place] lumbar spine 2-3V Routine Hospital Course (1) Neurogenic claudication due to lumbar spinal stenosis: Patient with lumbar decompression fusion tolerated this well was taken to orthopedic for postop labor postop day 1 is up and ambulating progress postop day #2 on postop day 3 he had excellent strength testing up and ambulating without difficulty. CASSIE drain decreasing appropriately. Subsequent discharge home. Discharge orders instructions from the chart for further review. Total Time Total Time Spent Total Time Spent (In Minutes): 20 minutes Discharge Plan Discharge Items Patient Disposition: Home - Self-Care Reason For Visit: POST OP Discharge Diagnosis: Lumbar spinal stenosis with radiculopathy Activity: As commented below Non-emergency contact: Primary Care Provider Call non-emergency contact if: you have any medication questions Follow-up/Referrals: Arvin Lanier [Primary Care Provider] - Diet: Regular Addtl Attending Provider Instructions: ACTIVITY RECOMMENDATIONS: SELF CARE INSTRUCTIONS AFTER THORACIC/LUMBAR FUSIONS 1. You may walk to your tolerance. It is good exercise for your legs and back. Expect some back and intermittent leg aches and pains. 2. You may perform "counter-top" level activities (make a sandwich, vijay with a project, etc.). 3. No bending or lifting of more than 10 pounds or back twisting of any nature (roll like a log when turning in bed). 4. You may ride in a car for 20-30 minutes at a time. No driving until after your first visit with your doctor. 5. Frequent changes of position and restricting sitting to 30 minutes at a time will help limit the amount of back spasms and stiffness you may experience. 6. You may discontinue the use of ambulatory aids (cane, crutches, etc.) once y our strength and confidence allow. 7. You may imagery intelligence the shower and let water strike your incision when you arrive home at least once daily. Do not take a tub bath, sit in a hot tub or go into a swimming pool until after your first recheck in the office. SPECIAL CARE INSTRUCTIONS: VERY IMPORTANT TO READ AND REVIEW A. Your surgical incision has been closed with a cosmetic suture under the skin that will dissolve in about 6 weeks. In 14 days, you can use a pair of clean scissors and cut the suture that is left outside of the skin at the ends of your incision. 1. The small skin tapes can be removed 7 days after surgery if they have not fallen off by that point. 2. You may keep the wound open to air as much as possible to promote healing after post-op day number 5 unless told otherwise by your doctor. 3. If you think the wound looks like it is becoming infected (redness or worsening drainage) and/or you are experiencing fever, chill or worsening back pain and muscle spasms, contact the office so that we may evaluate you as soon as possible. B. Complications are uncommon, but please contact us if you have any signs or symptoms of: 1. wound infection (fever higher than 102.5 degrees F, redness, separation of wound, drainage, or increasing pain from the incision) 2. blood clots in legs (pain, swelling, redness and warmth in legs) 3. urinary tract infection (fever higher than 102.5 degrees F, burning upon urination or increased frequency of urination) 4. nerve problems (inability to walk on your toes or heels, numbness, loss of bowel or bladder control) 5. any other symptoms that concern you C. Please call the office at if you have any concerns or questions about your operation or recovery. D. No smoking! Smoking drastically decreases the chance of a solid fusion. E. Do not take any anti-inflammatory medications (Indocin, Advil, Motrin, Aspirin, Naprosyn, etc.) as these may inhibit the chance of a solid fusion. Tylenol is okay to take for pain. MANAGING PAIN AFTER SPINAL SURGERY 1. Narcotic medication is intended for short-term use and will be provided for surgical pain. Surgical pain usually lasts for a period of 4-6 weeks. Narcotic medication includes Percocet, Vicodin, Darvocet, Tylenol #3 or Lortab. 2. Longer-term pain is more appropriately treated with non-narcotic medication such as Tylenol ES. 3. Muscle spasm is not appropriately treated with narcotics. Muscle relaxers such as Soma, Flexeril or Skelaxin can be used along with Tylenol ES. 4. Remember that we all live with some "aches and pains". This is not unusual or uncommon after an injury or as we get older. a. Back pain is expected and may include muscle spasms for 4 to 6 weeks after surgery. The pain should gradually improve. If the pain worsens for no apparent reason, please contact the office. b. Intermittent leg pain may also be experienced and should not be concerned about unless it worsens for no apparent reason. If so, please contact the office. 5. We will provide appropriate medication within the normal guidelines of their prescribed use. We will also be very cautious and aware of potential abuse and extended duration of patients' medication needs. a. Pain medications are for your comfort and to assist with sleep and rest so that the tissue can heal. They are not provided in order to return to normal activity and should not be used through the day. To do so or worsening pain at night can result from ongoing tissue damage and development of tolerance to the prescribed medicine. 6. Please allow 2-3 days to process refills. Prescriptions will not be mailed but must be picked up at the office. FOLLOW UP VISIT: Keep your scheduled follow-up appointment. Any questions, please call the office at . Pending Studies at Discharge: No Stand-Alone Forms: [facility] Medications and DC Order Prescriptions: New tramadol 50 mg tablet 50 mg PO Q6H PRN (Reason: pain, moderate) Qty: 30 0RF oxycodone 5 mg tablet 5 mg PO Q6H PRN (Reason: pain, severe) Qty: 30 0RF Continued lisinopril 2.5 mg tablet 2.5 mg PO HS PRN (Reason: Other) Rx Instructions: "TAKES FOR KIDNEYS" metronidazole 0.75 % cream 1 appln TOP DAILY PRN (Reason: skin irritation) sildenafil (pulm.hypertension) 20 mg tablet See Rx Instructions PO ONCE PRN (Reason: sexual activity) Qty: 60 6RF Rx Instructions: Take 1-5 tabs PRN 1 hour prior to need. No more than 5 tabs in 24 hours. cholecalciferol (vitamin D3) 125 mcg (5,000 unit) capsule 125 mcg PO QAM multivitamin Tablet 1 tab PO QAM acetaminophen 500 mg Capsule 1,000 mg PO Q4H PRN (Reason: Pain) Discharge Orders: Discharge Order (Routine); Ordered 03/15/22 Ordered By: Albin Turpin Admission Data Admit Date/Time: 03/12/22 11:52 Attending Provider: Albin Turpin Admit Provider: Albin Turpin Primary Care Provider: Arvin Lanier Other Providers: Candace Mejia ; Milo Russo
--- NOTE | 2022-03-21 06:36 | Coding Query ---
ANEMIA To promote full compliance with coding requirements relating to patient care, physician participation is requested in all cases of school resource officer uncertainty. Please assist us with the question(s) below: Coding Question(s): The record reflects the following clinical findings: Patient admitted for spinal fusion. Long standing history of anemia. Baseline hgb 11.2 dropped to 8.5 . EBL 200 . 8/6 prog note " acute on chronic anemia". If these findings are indicative of anemia, please specify the known or suspected type by placing an "X" within the parenthesis (x). If other, please document type. Examples are: (x ) Acute blood loss anemia (x ) Acute Postoperative blood loss anemia (x) Acute postoperative anemia due to dilutional fluids ( ) Chronic blood loss anemia ( ) Anemia of chronic disease ( ) Aplastic anemia ( ) Anemia due to renal disease ( ) Anemia in neoplastic disease ( ) Iron deficient anemia ( ) Anemia, unspecified or other (x ) Other: (please specify) Acute blood loss anemia vs. dilutional post operative anemia in the setting of chronic anemia (likely secondary to CKD) ( ) Unable to determine Thank you CRISPIN Leslie [facility]
== END 2022-03-15 14:13 | disposition home or self-care (01) | DRG 454 ==
LOC: ASU 07:06 → 3E 11:52